=== PATIENT | female | born 1975 | race African-American/Black ===

== ENCOUNTER 2018-01-05 04:33 | Emergency (ER) | payer MEDICAID ==
[~2018-01-05] VITALS: Ht 167.6 cm; Wt 137.0 kg
[~2018-01-05 04:33] MED LIST: NO MEDS
[2018-01-05 05:26] LABS: BASOPHILS % 0.9 % (0.0-2.0); EOSINOPHILS % 4.9 % (0.0-5.0); HEMATOCRIT. 38.4 % (36.0-48.0); HEMOGLOBIN. 13.1 g/dL (12.0-16.0); LYMPHOCYTES % 41.5 % (20.0-50.0); MEAN CORPUSCULAR HEMOGLOBIN 31.4 pg (28.0-32.0); MEAN CORPUSCULAR VOLUME 92.4 fL (81.0-99.0); MEAN PLATELET VOLUME 8.1 fl (7.4-10.4); MONOCYTES % 10.8 % (2.0-8.0); NEUTROPHILS % 41.9 % (40.0-76.0); PLATELET 225 x1000/uL (130-400); RED BLOOD CELL COUNT 4.15 mill/uL (4.2-5.4); RED CELL DISTRIBUTION WIDTH 14.1 % (11.6-14.6)
[2018-01-05 05:30] LABS: CHLORIDE 108 mEq/L (98-107)
[2018-01-05 05:36] LABS: PARTIAL THROMBOPLASTIN TIME 26.9 sec (23.4-31.0); PROTHROMBIN TIME 10.6 sec (9.4-11.6)
[2018-01-05] MEDS ORDERED: ASPIRIN 81MG TABLET PO ONE (06:15)
[2018-01-05] MEDS ORDERED: METOPROLOL TARTRATE 25MG TABLET PO ONE (06:15)
[2018-01-05 10:04] VITALS: BP 110/69
== END 2018-01-05 10:07 | disposition home or self-care (01) ==
LOC: ER 04:33 → ENRESERV 10:18 → CANRESERV 10:18 → CANBEDREQ 17:52
DX: I47.1 Supraventricular tachycardia (principal); R00.2 Palpitations
CPT/HCPCS: 36415; 71045; 80053; 83880; 84484; 85025; 85610; 85730; 93005; 99285

== ENCOUNTER 2018-04-14 19:29 | Emergency (ER) | payer MEDICAID ==
[~2018-04-14] VITALS: Ht 167.6 cm; Wt 138.0 kg
[2018-04-14 20:03] VITALS: BP 140/76
== END 2018-04-14 22:00 | disposition left against medical advice (07) ==
LOC: ER 19:29
DX: Z04.3 Encounter for examination and observation following other accident (principal); M79.89 Other specified soft tissue disorders; Z53.21 Procedure and treatment not carried out due to patient leaving prior to being seen by health care provider